=== PATIENT | male | born 1965 | race Caucasian/White ===

== ENCOUNTER 2024-03-05 12:08 | Observation (INO) ==
[~2024-03-05 12:08] MED LIST: TYLENOL 325 MG TAB PO PRN
[2024-03-05] MEDS ORDERED: BARHEMSYS INJ IVP PRN (12:40)
[2024-03-05] MEDS ORDERED: ZOFRAN INJ 4 MG VIAL IVP PRN (12:40)
[2024-03-05] MEDS ORDERED: BENADRYL INJ 50 MG VIAL IVP PRN (12:40)
[2024-03-05] MEDS ORDERED: DILAUDID INJ IVP PRN (12:40)
[2024-03-05] MEDS: LR 1,000 ML IV 1,000 ML IV ONE (12:45)
[2024-03-05] MEDS: LR 1,000 ML IV 2,000 ML IV PRN (13:00)
[2024-03-05] MEDS: ZOFRAN INJ 4 MG VIAL IVP PRN (13:10)
[2024-03-05] MEDS: NOZIN NASAL SANITIZER TP SCH (13:10)
[2024-03-05] MEDS: PEPCID 20 MG VIAL IVP PRN (13:12)
[2024-03-05] MEDS: REGLAN INJ 10 MG VIAL IVP PRN (13:14)
[2024-03-05 13:39] VITALS: BMI 27.8
[2024-03-05] MEDS: NS 100 ML IV 100 ML ONE (14:38)
[2024-03-05] MEDS: ANCEF VIAL 1 GRAM ONE (14:38)
[2024-03-05] MEDS ORDERED: KETAMINE HCL ONE (14:43)
[2024-03-05] MEDS: ANCEF VIAL 1 GRAM IV PRN (14:43)
[2024-03-05] MEDS ORDERED: XYLOCAINE 2 % (PLAIN) ONE (14:43)
[2024-03-05] MEDS ORDERED: PRECEDEX INJ VIAL ONE (14:43)
[2024-03-05] MEDS ORDERED: ULTANE GAS IN ONE (14:43)
[2024-03-05] MEDS: XYLOCAINE 2 % (PLAIN) INJ PRN (14:50)
[2024-03-05] MEDS: ROBINUL IVP PRN (14:51)
[2024-03-05] MEDS: DECADRON INJ IVP PRN (14:54)
[2024-03-05] MEDS: MARCAINE 0.25% INJ ONE (15:08)
[2024-03-05] MEDS: KETAMINE HCL IV PRN (15:21)
[2024-03-05] MEDS: FENTANYL VIAL INJ 100 mcg IVP PRN (15:27)
[2024-03-05] MEDS: EPHEDRINE SULFATE INJ IVP PRN (15:35)
[2024-03-05] MEDS: DIPRIVAN VIAL 200 ML IVP PRN (16:25)
[2024-03-05] MEDS: BYFAVO INJ IVP PRN (16:32)
[2024-03-05] MEDS: PRECEDEX INJ VIAL IVP PRN (16:55)
[2024-03-05] MEDS: DILAUDID INJ IVP PRN (19:46)
[2024-03-05] MEDS: COLACE CAP 100 MG PO SCH (21:03)
[2024-03-06] MEDS: NS 1,000 ML IV 1,000 ML IV SCH (04:18)
[2024-03-06 05:36] LABS: BLOOD UREA NITROGEN 10 mg/dL (7-18); CALCIUM 8.3 mg/dL (8.5-10.1); CARBON DIOXIDE 26.8 mmol/L (21-32); CHLORIDE 105 mmol/L (98-107); COR NA(FOR HYPERGLY) 142 mmol/L (136-145); CREATININE 1.05 mg/dL (0.70-1.30); GLUCOSE 164 mg/dL (65-99); SODIUM 140 mmol/L (136-145); eGFR NON BLACK RACES > 60 (>60)
[2024-03-06] MEDS: PERCOCET TAB 5/325 MG PO PRN (08:09)
--- NOTE | 2024-03-06 08:23 | NOTE.SOAP ---
Soap Note Note for Day of Date of Exam: 03/06/24 Subjective Data Subjective Data: pt resting comfortable. pain is 8/10. controlled. throbbing. no issues. has voided Objective Data Objective Data: dressing clean dry and intact. no issues. no strikethrough on bandages. unable to extend toes but can plantar flex . sensory intact to toes. CFT instant. Assessment Assessment: 58 M POD #1 from TAR left ankle Plan Plan: pain doing ok. block has worn off. plan for D/C to home. he has all appliances he needs at home. rx's in chart and discharge instruction in chart. will see me as outpatient in [place].
[2024-03-06] MEDS: ZOFRAN INJ 4 MG VIAL IVP PRN (09:56)
[2024-03-06 10:04] VITALS: RESP 20
[2024-03-06 10:38] VITALS: BP 115/65; PULSE 107; TEMP 98; O2SAT 97
[2024-03-06] MEDS: NAROPIN 0.75% EPI ONE (10:38)
[2024-03-06] MEDS: BYFAVO INJ IVP ONE (10:38)
[2024-03-06] MEDS: REGLAN INJ 10 MG VIAL ONE (10:39)
[2024-03-06] MEDS: PEPCID 20 MG VIAL ONE (10:39)
[2024-03-06] MEDS: DECADRON INJ ONE (10:40)
[2024-03-06] MEDS: DIPRIVAN VIAL 20 ML ONE (10:41)
[2024-03-06] MEDS: OFIRMEV IV 1000 MG VIAL 1,000 MG/100 ML VIAL IV ONE (10:41)
[2024-03-06] MEDS: FENTANYL VIAL INJ 100 mcg ONE (10:41)
[2024-03-06] MEDS: ROBINUL ONE (10:42)
[2024-03-06] MEDS: EPHEDRINE SULFATE INJ ONE (10:42)
[2024-03-06 10:44] LABS: HEMOGLOBIN 14.5 g/dL (13.5-18.0); LYMPHOCYTES # (AUTO) 0.7 X10^3/uL (1.3-2.9); MONOCYTES # (AUTO) 0.5 x10^3/uL (0.3-0.8)
[2024-03-06 10:49] LABS: BASOPHILS % (AUTO) 0.3 % (0.2-1.0); HEMATOCRIT 42.4 % (42.0-54.0); LYMPHOCYTES % (AUTO) 5.2 % (21.0-51.0); MEAN CORPUSCULAR HGB CONC 34.2 g/dL (33.0-35.0); MEAN CORPUSCULAR VOLUME 84.7 fL (80.0-100.0); MEAN PLATELET VOLUME 9.3 fL (7.4-11.0); MONOCYTES % (AUTO) 3.9 % (0.0-13.0); NEUTROPHILS # (AUTO) 11.8 x10^3/uL (2.2-4.8); NEUTROPHILS % (AUTO) 90.6 % (42.0-75.0); PLATELET COUNT 246 X10^3/uL (150.0-450.0); RED CELL DISTRIBUTION WIDTH 13.1 % (11.6-16.5)
[2024-03-06 11:26] LABS: PLATELET MORPHOLOGY COMMENT NORMAL (NORMAL)
[2024-03-06] MEDS: LOVENOX INJ 40 MG SYR SC SCH (11:39)
== END 2024-03-06 12:00 | disposition home or self-care (01) ==
LOC: MED/SURG 12:08 → SURG1 12:08
PROVIDERS: ADMIT Obstetrics & Gynecology Obstetrics; ATTEND Obstetrics & Gynecology Obstetrics
DX: M19.072 Primary osteoarthritis, left ankle and foot; R73.09 Other abnormal glucose